=== PATIENT | female | born 1980 | race Two or more races ===

== ENCOUNTER 2024-07-16 14:21 | Outpatient (RCR) | payer MEDICAID, SELFPAY | END 2024-08-01 23:59 | disposition home or self-care (01) | LOC: SCTC 14:21 | PROVIDERS: PCP Obstetrics & Gynecology; Referring Provider Physician Assistant; Visit Provider Nurse Practitioner Family | DX: D69.6 Thrombocytopenia, unspecified (principal); K76.0 Fatty (change of) liver, not elsewhere classified; K80.20 Calculus of gallbladder without cholecystitis without obstruction | CPT/HCPCS: 99212; G0463 ==

== ENCOUNTER 2024-10-15 14:41 | Outpatient (RCR) | payer MEDICAID, SELFPAY | END 2024-10-30 23:59 | disposition home or self-care (01) | LOC: SCTC 14:41 | PROVIDERS: PCP Obstetrics & Gynecology; Referring Provider Obstetrics & Gynecology; Visit Provider Nurse Practitioner Family | DX: D69.6 Thrombocytopenia, unspecified (principal); K76.0 Fatty (change of) liver, not elsewhere classified; K80.20 Calculus of gallbladder without cholecystitis without obstruction | CPT/HCPCS: 99212; G0463 ==

== ENCOUNTER → 2025-03-08 | Outpatient (CLI) | payer MEDICAID, SELFPAY ==
--- NOTE | 2025-03-08 13:30 | XR_ITS ---
Examination: Screening digital mammography, bilateral Computer aided detection 3-D breast Tomosynthesis, bilateral Date and time of exam: March 08, 2025 1324 hours Compared to mammograms dating to February 04, 2020 Indication: Screening Technique: Nonmagnified MLO, CC views of the breasts to been obtained, reconstructed from 3-D Tomosynthesis images. R2 computer aided detection program utilized for evaluation of suspicious masses and/or abnormal calcifications. 3-D Tomosynthesis images obtained. Findings: The breasts are heterogeneously dense, which may obscure small masses 14 mm focal asymmetry inner lower left breast Impression: BI-RADS Category 0: Incomplete: Need additional imaging evaluation Recommend follow-up spot tomographic views 14 mm focal asymmetry inner lower left breast as well as left breast sonography to complete the workup
== END | disposition home or self-care (01) ==
LOC: CDIM 13:14
PROVIDERS: PCP Family Medicine; Referring Provider Obstetrics & Gynecology; Visit Provider Obstetrics & Gynecology
DX: Z12.31 Encounter for screening mammogram for malignant neoplasm of breast (principal); N64.89 Other specified disorders of breast
CPT/HCPCS: 77063; 77067

== ENCOUNTER → 2025-07-23 | Outpatient (CLI) | payer MEDICAID, SELFPAY ==
--- NOTE | 2025-07-23 14:00 | XR_ITS ---
Examination: Breast ultrasound, unilateral, left Date and time of exam: July 23, 2025, 1420 hours INDICATIONS: Mammogram March 08, 2000 2514 mm focal asymmetry inner lower left breast Technique: Real-time vasquez scale ultrasonographic imaging performed left breast including all 4 quadrants as well as nipple retroareolar and axillary region. Findings: 11:00 nodule lobular margins 12 x 5 x 9 mm, multiple cysts IMPRESSION: BI-RADS Category 3: Probably benign findings 6-month continued left breast sonogram follow-up strongly recommended to document stability of 11:00 nodule described above
--- NOTE | 2025-07-23 14:30 | XR_ITS ---
Examination: Diagnostic digital mammography, unilateral, left Computer aided detection 3-D breast Tomosynthesis, unilateral Date and time of exam: July 23, 2025, 1429 hours INDICATIONS: Mammogram March 08, 2000 2514 mm focal asymmetry inner lower left breast Technique: Nonmagnified MLO, CC views of the left breast have been obtained, reconstructed from 3-D Tomosynthesis images. R2 computer aided detection program utilized for evaluation of suspicious masses and/or abnormal calcifications. 3-D Tomosynthesis images obtained. Findings: The breast is heterogeneously dense, which may obscure small masses Focal asymmetry remains on the spot compression MLO view left breast probably benign Impression: BI-RADS category 3: Probably benign findings Recommend 1 additional 6-month left mammogram follow-up
== END | disposition home or self-care (01) ==
PROVIDERS: PCP Obstetrics & Gynecology; Referring Provider Obstetrics & Gynecology; Visit Provider Obstetrics & Gynecology
DX: R92.332 Mammographic heterogeneous density, left breast (principal); N63.22 Unspecified lump in the left breast, upper inner quadrant
CPT/HCPCS: 76641; 77061; 77065; G0279